=== PATIENT | female | born 1970 | race African-American/Black ===

== ENCOUNTER 2025-04-21 17:46 | Emergency (ER) | payer SELFPAY ==
[~2025-04-21] VITALS: Ht 170.2 cm; Wt 92.9 kg
[2025-04-21 17:57] VITALS: O2SAT 100
[2025-04-21] MEDS: ACETAMINOPHEN 325MG TABLET PO ONE (22:12)
[2025-04-21] MEDS: CYCLOBENZAPRINE 10MG TABLET PO ONE (23:21)
[2025-04-21] MEDS: KETOROLAC 30MG/ML VIAL IM ONE (23:21)
[2025-04-21] MEDS: LIDOCAINE 5% PATCH TOP SCH (23:26)
[2025-04-21] MEDS ORDERED: KETO10TA2 MT (23:39)
[2025-04-21] MEDS ORDERED: LIDO-53 TP (23:39)
[2025-04-21] MEDS ORDERED: CYCL10TA21 MT (23:39)
[2025-04-21 23:46] VITALS: BP 132/87; PULSE 70; RESP 20; TEMP 36.7; O2SAT 100
== END 2025-04-21 23:55 | disposition home or self-care (01) ==
LOC: ER 17:46
DX: M25.512 Pain in left shoulder (principal); M25.552 Pain in left hip; R51.9 Headache, unspecified; Z79.899 Other long term (current) drug therapy
CPT/HCPCS: 96372; 99284; J1885; Z7610